=== PATIENT | female | born 1950 | race Caucasian/White ===

== ENCOUNTER → 2017-01-10 | Outpatient (CLI) | payer BC, OTHER ==
[~2017-01-10] MED LIST: AMOX1POW6 PO; LEVO88TA22 PO; TRVOPS OPB
[2017-01-10 18:59] LABS: ALT/SGPT 23 U/L (12-78); AST/SGOT 16 U/L (15-37); BLOOD UREA NITROGEN 21 mg/dl (7-18); CALCIUM 8.5 mg/dl (8.5-10.1); CARBON DIOXIDE 29 mmol/L (21-32); CHLORIDE 105 mmol/L (98-107); CHOLESTEROL 204 mg/dl (0-200); GLUCOSE 87 mg/dl (70-99); POTASSIUM 3.8 mmol/L (3.5-5.1); SODIUM 141 mmol/L (136-145)
[2017-01-10 19:05] LABS: ALB/GLOB RATIO 1.2 (0.9-2); ALKALINE PHOSPHATASE 122 U/L (45-117); CHOLESTEROL/HDL RATIO 3.7; HDL CHOLESTEROL 55 mg/dl; LDL CHOLESTEROL CALCULATED 119 mg/dl; THYROID STIMULATING HORMONE 0.306 uIu/ml (0.300-4.500); TRIGLYCERIDES 148 mg/dl (0-150); VERY LOW DENSITY LIPOPROT CALC 30 mg/dl
== END | disposition home or self-care (01) ==
LOC: C.LABBFT 14:45
PROVIDERS: ATTEND Nurse Practitioner
DX: E03.9 Hypothyroidism, unspecified (principal); E78.00 Pure hypercholesterolemia, unspecified

== ENCOUNTER → 2017-02-21 | Outpatient (CLI) | payer BC, OTHER ==
--- NOTE | 2017-02-21 11:38 | DIAGNOSTIC IMAGING REPORT ---
CHEST 2 VIEWS ROUTINE CLINICAL HISTORY: MARGINAL ZONE LYMPHOMA COMPARISON STUDY: PET CT November 18, 2014 and chest radiograph May 06, 2016. FINDINGS: There are cholecystectomy clips. No pneumothorax or pleural effusion is present. There is no consolidation. No suspicious pulmonary nodules are identified by radiography. Cardiomediastinal silhouette is normal. Underlying emphysema is present. There is no evidence of thoracic lymphadenopathy although evaluation is suboptimal by radiography. IMPRESSION: 1. No acute cardiopulmonary findings. 2. Moderate emphysema. Electronically signed by: Sergo Villafana M.D. 02/21/2017 11:36 AM Dictated Date/Time: 02/21/2017 11:34 AM
[2017-02-21 12:06] LABS: BASO % 0.4 %; BASO ABS # 0.04 K/uL (0-0.2); COMPLETE YES; EOS % 1.9 %; HEMATOCRIT 40.4 % (37-47); IG% 0.2 %; LYMPH % 26.6 %; LYMPH ABS # 2.72 K/uL (1.2-3.4); MEAN CELL VOLUME 95.1 fL (80-100); MEAN CORPUSCULAR HEMOGLOBIN 31.3 pg (25-34); MEAN CORPUSCULAR HGB CONC 32.9 g/dl (32-36); MEAN PLATELET VOLUME 10.7 fL (7.4-10.4); MONO % 5.5 %; NEUT % 65.4 %; PLATELET COUNT 292 K/uL (130-400); RED BLOOD COUNT 4.25 M/uL (4.2-5.4); WHITE BLOOD COUNT 10.21 K/uL (4.8-10.8)
[2017-02-21 12:50] LABS: ALT/SGPT 28 U/L (12-78); BLOOD UREA NITROGEN 17 mg/dl (7-18); BUN/CREATININE RATIO 15.8 (10-20); CARBON DIOXIDE 30 mmol/L (21-32); CHLORIDE 107 mmol/L (98-107); GLUCOSE 89 mg/dl (70-99); SODIUM 142 mmol/L (136-145)
[2017-02-21 12:52] LABS: ALB/GLOB RATIO 1.3 (0.9-2); ALKALINE PHOSPHATASE 123 U/L (45-117); AST/SGOT 22 U/L (15-37)
[2017-02-21 13:23] LABS: CALCIUM 9.3 mg/dl (8.5-10.1)
== END | disposition home or self-care (01) ==
LOC: C.RAD 10:53
PROVIDERS: ATTEND Nurse Practitioner Family
DX: C85.90 Non-Hodgkin lymphoma, unspecified, unspecified site (principal); J43.9 Emphysema, unspecified